=== PATIENT | female | born 1995 | race Caucasian/White ===

== ENCOUNTER 2016-08-02 22:19 | Emergency (ER) | payer OTHER ==
[~2016-08-02] VITALS: Ht 165.1 cm; Wt 63.5 kg
[~2016-08-02 22:19] MED LIST: CIPRO 500MG TA500 MG PO; GUMMI BEAR MUL1 EACH PO; NOMEDS XX; OMNICEF 300 MG300 MG PO; PREDNISONE 20MG20 MG PO; PRILOSEC OTC20 MG PO; PROMETHAZINE5 ML/UDC PO; PYRIDIUM 200MG200 MG PO; TESSALON PERLE100 MG PO; TORADOL10 MG PO; ULTRAM50 MG PO; ZITHROMAX Z-PA250 M2 PO; ZOFRAN4 MG PO
--- NOTE | 2016-08-02 23:09 | Emergency Room Report ---
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 N Clinical Suspician of Infection? N Mental Status: 1 - Regular (Normal Baseline) Sepsis Risk:Possible Sepsis Risk Have you (or family members/close friends) recently traveled outside the [place]? N If Yes, where/when: Have you had exposure to infectious disease within the past month? N TB? Other? Specify: Source patient, RN notes reviewed, RN/MD Exam Limitations no limitations Comment This is a 21-year-old female patient that presented emergency room with midsternal chest pain, in the upper part of her chest, radiates to both shoulders, associated with anxiety, shortness of breath, episodes of hyperventilation, off-and-on for the past 2 weeks. Patient advised that she has had multiple similar episodes in the past and she has seen a drop forger helper at [facility] as well as Dr. Fam. They both advised her that there was no cardiac issue at hand. ALLERGIES Coded Allergies: No Known Allergies (05/18/16) Home Medications Active Scripts Prednisone (Prednisone 20MG) 20 MG PO BID #10 TAB Prov: 05/18/16 Reported Medications Multivitamin (Gummi Bear Multivitamin) 1 EACH PO DAILY #1 History Medical History General CAD? No Angina: No [place]: No Hypertension? Yes Hyperlipidemia? No CHF? No DVT? No PE? No COPD? No Asthma? No Anemia? No GERD? No Gastric ulcers? No GI Bleed? No Hernia? No Thyroid Problems? No Hypothyroidism? No CVA? No Seizures? No Diabetes? No Renal Insuffiency? No End Stage Renal Disease? No UTI? Yes Stones? Yes BPH? No GB Disease: No Nephritic Syndrome? No Asplenia? No Hepatitis? No Sickle Cell Disease? No Arthritis? No Migraines? No Cataracts? No Glaucoma? No MRSA? No HIV? No TB? No Anxiety? No Depression? No Cancer? 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 1 Week Ago Family History Family Hx Diabetes No CAD Yes Hypertension Yes Hyperlipidemia Yes Cancer No TB No Social History Smoking Hx Smoker: Current Every Day Smoker Tobacco: Yes Type Cigarettes Packs/day < 1 Pack Alcohol Alcohol: No Review of Systems All Other Systems Reviewed and Negative Cardiovascular chest pain, palpitations Physical Exam Vital Signs Vital Signs Date Time Temp Pulse Resp B/P Pulse O2 O2 Flow FiO2 Ox Delivery Rate 08/03 0031 98.0 66 18 117/67 98 08/03 0007 67 18 115/65 98 08/02 2333 82 16 122/70 98 08/02 2301 84 16 124/76 98 08/02 2221 98.2 104 20 147/94 100 General Appearance normal appearance, WD/WN, no apparent distress Respiratory Status Yes: trachea midline, chest symmetrical, tender on palpation (with deep inspiration). No: respiratory distress. Lung Sounds bilateral: normal breath sounds, lungs clear. 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 No Comment Upon examination the patient appears medically stable, minimally symptomatic. Advised patient of results obtained, also need for her to follow-up with Dr. Fam within the next 2 days, and call his office in the early hours of the morning to schedule a follow-up appointment. 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 of ischemic chgs, no ectopy, normal QRS, normal ND, normal EKG, no EKG for comparison, non-spec. ST/Twave chgs, ST elevation, ST depression, LBBB, RBBB, ectopy, abnormal Q waves Departure Departure Time of Disposition 2306 Disposition DC Home or Self Care(routine) Clinical Impression Primary Impression: Chest pain Qualifiers: Chest pain type: unspecified Qualified Code: R07.9 - Chest pain, unspecified Condition STABLE Referrals Gus Fam MD: Tomorrow-Call Office Patient Instructions DI for Chest Pain Additional Instructions Please follow-up with Dr. Gus Fam, within the next 2 days, call the office tomorrow to schedule follow-up appointment. Discharge Counseling Counseled pt/family regarding diagnosis, test results, medications/RX, home care, follow up needs Comment Please alternate Motrin with Tylenol for pain control, follow-up with your family doctor within 2 days if no better. ED Critical Care Critical Care No at [phone]
--- NOTE | 2016-08-02 23:09 | Emergency Room Report ---
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 N Clinical Suspician of Infection? N Mental Status: 1 - Regular (Normal Baseline) Sepsis Risk:Possible Sepsis Risk Have you (or family members/close friends) recently traveled outside the [place]? N If Yes, where/when: Have you had exposure to infectious disease within the past month? N TB? Other? Specify: Source patient, RN notes reviewed, RN/MD Exam Limitations no limitations Comment This is a 21-year-old female patient that presented emergency room with midsternal chest pain, in the upper part of her chest, radiates to both shoulders, associated with anxiety, shortness of breath, episodes of hyperventilation, off-and-on for the past 2 weeks. Patient advised that she has had multiple similar episodes in the past and she has seen a aquatics instructor at [facility] as well as Dr. Fam. They both advised her that there was no cardiac issue at hand. ALLERGIES Coded Allergies: No Known Allergies (05/18/16) Home Medications Active Scripts Prednisone (Prednisone 20MG) 20 MG PO BID #10 TAB Prov: 05/18/16 Reported Medications Multivitamin (Gummi Bear Multivitamin) 1 EACH PO DAILY #1 History Medical History General CAD? No Angina: No [place]: No Hypertension? Yes Hyperlipidemia? No CHF? No DVT? No PE? No COPD? No Asthma? No Anemia? No GERD? No Gastric ulcers? No GI Bleed? No Hernia? No Thyroid Problems? No Hypothyroidism? No CVA? No Seizures? No Diabetes? No Renal Insuffiency? No End Stage Renal Disease? No UTI? Yes Stones? Yes BPH? No GB Disease: No Nephritic Syndrome? No Asplenia? No Hepatitis? No Sickle Cell Disease? No Arthritis? No Migraines? No Cataracts? No Glaucoma? No MRSA? No HIV? No TB? No Anxiety? No Depression? No Cancer? 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 Week Ago Family History Family Hx Diabetes No CAD Yes Hypertension Yes Hyperlipidemia Yes Cancer No TB No Social History Smoking Hx Smoker: Current Every Day Smoker Tobacco: Yes Type Cigarettes Packs/day < 1 Pack Alcohol Alcohol: No Review of Systems All Other Systems Reviewed and Negative Cardiovascular chest pain, palpitations Physical Exam Vital Signs Vital Signs Date Time Temp Pulse Resp B/P Pulse O2 O2 Flow FiO2 Ox Delivery Rate 08/03 0031 98.0 66 18 117/67 98 08/03 0007 67 18 115/65 98 08/02 2333 82 16 122/70 98 08/02 2301 84 16 124/76 98 08/02 2221 98.2 104 20 147/94 100 General Appearance normal appearance, WD/WN, no apparent distress Respiratory Status Yes: trachea midline, chest symmetrical, tender on palpation (with deep inspiration). No: respiratory distress. Lung Sounds bilateral: normal breath sounds, lungs clear. Cardiovascular normal exam, regular rate/rhythm, no peripheral edema, no gallop, no JVD, no murmur, no rub, normal peripheral pulses Gastrointestinal normal bowel sounds, normal exam, non tender, soft, no organomegaly Extremities non-tender, normal range of motion, normal inspection Neurologic alert, cra II-XII nml as tested, normal exam, oriented x 3 Mental status normal mood/affect Skin intact, normal color, warm/dry Medical Decision Making LABS/Meds/Orders Pt receiving controlled substance in ED? No Comment Upon examination the patient appears medically stable, minimally symptomatic. Advised patient of results obtained, also need for her to follow-up with Dr. Fam within the next 2 days, and call his office in the early hours of the morning to schedule a follow-up appointment. 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 of ischemic chgs, no ectopy, normal QRS, normal SD, normal EKG, no EKG for comparison, non-spec. ST/Twave chgs, ST elevation, ST depression, LBBB, RBBB, ectopy, abnormal Q waves Departure Departure Time of Disposition 2306 Disposition DC Home or Self Care(routine) Clinical Impression Primary Impression: Chest pain Qualifiers: Chest pain type: unspecified Qualified Code: R07.9 - Chest pain, unspecified Condition STABLE Referrals Gus Fam MD: Tomorrow-Call Office Patient Instructions DI for Chest Pain Additional Instructions Please follow-up with Dr. Gus Fam, within the next 2 days, call the office tomorrow to schedule follow-up appointment. Discharge Counseling Counseled pt/family regarding diagnosis, test results, medications/RX, home care, follow up needs Comment Please alternate Motrin with Tylenol for pain control, follow-up with your family doctor within 2 days if no better. ED Critical Care Critical Care No at [phone]
[2016-08-03 00:31] VITALS: BP 117/67
--- NOTE | 2016-08-05 09:46 | RADIOLOGY REPORT PS360 ---
CHEST-PORTABLE ORDERING PHYSICIAN : Julio Maurice MD PATIENT AGE: 21 years GENDER: Female INDICATION: chest symptomsCHEST PAIN PROCEDURE: CHEST-PORTABLE COMPARISON: 05/18/2016 FINDINGS: Lungs well expanded and clear with no active disease evident. No pneumothorax. No pleural effusion. Heart normal size. Normal pulmonary vascularity. Hilar and mediastinal structures appear satisfactory. Chest wall unremarkable. T-spine intact. IMPRESSION -------- Stable chest No active disease.
== END 2016-08-03 00:52 | disposition home or self-care (01) ==
LOC: ER 22:19
DX: R07.9 Chest pain, unspecified (principal); I10 Essential (primary) hypertension; Z72.0 Tobacco use

== ENCOUNTER → 2016-09-04 | Outpatient (CLI) | payer OTHER ==
--- NOTE | 2016-09-07 09:46 | RADIOLOGY REPORT PS360 ---
US PELVIS-TRANSVAGINAL ONLY HISTORY: PELVIC PAIN ORDERING PHYSICIAN: Schuyler Han MD PATIENT AGE: 21 years COMPARISON: None FINDINGS: Uterus is 7 x 3 x 5 cm with a combined endometrial thickness of 4 mm. No uterine mass evident. The left ovary is 2.7 x 2.2 cm. The right ovary is 2.2 x 1.6 cm. Bilateral ovarian blood flow is present. No ovarian mass or cul-de-sac fluid. IMPRESSION: Negative pelvic ultrasound
== END ==
LOC: RAD 16:11
DX: R10.2 Pelvic and perineal pain (principal)

== ENCOUNTER 2017-03-25 19:47 | Emergency (ER) | payer OTHER ==
[~2017-03-25] VITALS: Ht 165.1 cm; Wt 61.2 kg
[2017-03-25] MEDS ORDERED: WELLBUTRIN SR100 MG PO (20:02)
[2017-03-25] MEDS ORDERED: TESSALON PERLE100 M1 PO (20:35)
[2017-03-25] MEDS ORDERED: MEDROL 4MG. DOSE4 MG PO (20:35)
[2017-03-25] MEDS ORDERED: ZITHROMAX Z PA250 MG PO (20:35)
--- NOTE | 2017-03-25 20:35 | Urgent Treatment Center Report ---
History of Present Issue Date/Time Seen by Provider 03/25/172034 Visit Reason Pt arrived:Walked Presenting Problem:C/O SORE THROAT AND COUGH X3 DAYS Location if Accident: Onset of symptoms date/time:/ or onset unknown for:MEDICAL HX UNKNOWN Have you (or family members/close friends) recently traveled outside the [place]? N If Yes, where/when: Have you had exposure to infectious disease within the past month? TB? Other? Specify: Patient states that she has been having sorethroat and cough that has continued to get worse over the last 3 days State that she feels like her throat is raw and burning and state that she can see drainage in the back of her throat that is making her cough when she lays down ALLERGIES Coded Allergies: No Known Allergies (05/18/16) Home Medications Reported Medications BUPROPION HCL SR (Wellbutrin SR 100MG) 100 MG PO BID History Medical History General CAD? No Angina: No [place]: No Hypertension? Yes Hyperlipidemia? No CHF? No DVT? No PE? No COPD? No Asthma? No Anemia? No GERD? No Gastric ulcers? No GI Bleed? No Hernia? No Thyroid Problems? No Hypothyroidism? No CVA? No Seizures? No Diabetes? No Renal Insuffiency? No UTI? Yes Stones? Yes BPH? No GB Disease: No Nephritic Syndrome? No Asplenia? No Hepatitis? No Sickle Cell Disease? No Arthritis? No Migraines? No Cataracts? No Glaucoma? No MRSA? No HIV? No TB? No Anxiety? No Depression? No Cancer? No More? 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 Respiratory cough Gastrointestinal denies abdominal pain Physical Exam Vital Signs Vital Signs Date Time Temp Pulse Resp B/P Pulse O2 O2 Flow FiO2 Ox Delivery Rate 03/25 2001 97.4 99 20 151/82 100 General Appearance normal appearance, WD/WN, no apparent distress Ear, Nose, Throat Throat red, irritated drainage noted, tenderness frontal sinuses Respiratory Status Yes: trachea midline, chest symmetrical. No: respiratory distress. Lung Sounds bilateral: normal breath sounds, lungs clear. Cardiovascular normal exam, regular rate/rhythm, no peripheral edema Neurologic alert, normal exam, oriented x 3 Medical Decision Making LABS/Meds/Orders Pt receiving controlled substance in ED? No Results/Orders Laboratory Tests 03/25/172010: Influenza Type A Ag NOT DETECTED, Influenza Type B Ag NOT DETECTED 03/25/171957: Group A Strep Screen NOT DETECTED Orders Procedure Date/time Status UTC STREP SCREEN 03/25 2011 Complete UTC FLU A,B 03/25 2011 Complete Departure Departure Time of Disposition 2027 Disposition DC Home or Self Care(routine) Clinical Impression Primary Impression: Upper respiratory infection Qualifiers: URI type: unspecified URI Qualified Code: J06.9 - Acute upper respiratory infection, unspecified Condition STABLE Referrals Jose R VALLEJO,Mario (Family): 3 Days-Call Office If no improvement or worsening of symptoms Patient Instructions Cough, Sinus Headache, Sinusitis Additional Instructions * Monitor Temp. Tylenol and/or Ibuprofen as needed. ER if fever is no less than 101 despite alternating Tylenol and Ibuprofen * Encourage fluids, water, Gatorade, powerade, pedialyte if infant/toddler/or child * Warm salt water gargles for throat irritation *Warm fluids *Sore throat lozenges *Sleep elevated *humidifier or vaporizer *Flonase 2 sprays each nostril daily but may take 2-3 days to notice improvement with it Follow up IMMEDIATELY for new or worsening of symptoms OR no noticeable improvement over the next 48-72 hours. 911 immediately for any life threatening symptoms such as chest pain or difficulty breathing Discharge Counseling Counseled pt/family regarding diagnosis, test results, medications/RX, home care, follow up needs Prescriptions Current Visit Scripts Azithromycin (Zithromycin (Z-MOHAN) 250MG Tab) 250 MG PO DAILY #6 TAB TAKE TWO (2) TABLETS ON DAY 1, THEN ONE (1) TABLET DAY #2 THRU #5 Methylprednisolone (Medrol Dose Mohan) 4 MG PO UD #1 MOHAN TAKE DIRECTED ON PACKAGING Benzonatate (Tessalon Perle) 100 MG PO TID #15 SGL at 2040
[2017-03-25 20:36] VITALS: BP 151/82
--- OUTSIDE RECORDS SUMMARY | 2017-03-27 18:01 | External Medical Summary Rpt | CCD ---
Author Author [employer] Organization [employer] Address Unknown Phone Unavailable Purpose Continuity of Care Document - through 2016
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
--- OUTSIDE RECORDS SUMMARY | 2017-03-27 18:01 | External Medical Summary Rpt | CCD ---
Author Author , REYNALDO Organization REYNALDO Address Unknown Phone [email or web address] Care Team Providers Care Climate Change Risk Assessor Name Role Phone Kaylee Patel MD, Unavailable Unavailable Kaylee Fuentes MD, Unavailable Unavailable Kam BELTRAN MD, Unavailable Unavailable PAVEL BELTRAN MD Purpose Continuity of Care Document - 01-28-2013 through 2016 Problems Code Diagnosis DOS Provider Status 305.1 305.1 05-30-2013 [place] TOBACCO USE [facility] 626.8 626.8 05-30-2013 [place] MENSTRUAL [facility] NEC 466.0 466.0 ACUTE 05-18-2013 [place] BRONCHITIS [facility] 511.0 511.0 05-18-2013 [place] [facility] OR TB 780.2 780.2 01-28-2013 [place] SYNCOPE AND [facility] N20.0 CALCULUS OF KIDNEY O23.40 UNSP INFECTION [...] UA Dipstick Pnl Ur (12-15-2016 13:54) Color 6950051 Yellow, complet Ur 017 09 Straw ed 13:54 Yellow color SCT Clarity 6537512 Clear complet Ur 017 5 ed 13:54 Cloudy SCT pH Ur 7.0 5.0-8.0 complet Strip.a 017 ed uto 13:54 Sp Gr 1.018 1.001-1 complet Ur 017 .030 ed Strip 13:54 Glucose 5386285 Negativ complet Ur 017 09 e ed Strip-m 13:54 Negativ Cnc e SCT Ketones 2558562 Negativ complet Ur Ql 017 09 e ed Strip 13:54 Negativ e SCT Bilirub 2796688 Negativ complet Ur Ql 017 09 e ed Strip 13:54 Negativ e SCT Hgb Ur 4348940 Negativ complet Ql 017 01 e ed Strip.a 13:54 Large uto SCT Prot Ur 2278145 Negativ complet Ql 017 09 e ed Strip 13:54 Negativ e SCT Leukocy 8283889 Negativ complet te 017 04 e ed esteras 13:54 Small e Ur Ql SCT Strip.a uto Nitrite 7263681 Negativ complet Ur Ql 017 09 e [...] Auto 017 /HPF Seen ed 13:54 Bacteri 9430510 None complet a Ur Ql 017 00 Not Seen, ed Auto 13:54 detecte Trace d SCT /HPF Squamou 3-6 None complet s 017 /HPF Seen, ed #/area 13:54 0-2 UrnS HPF Hyaline 0-6 0-6 complet Casts 017 /LPF ed Ur Ql 13:54 Auto Ref lab Automat complet test 017 ed ed method 13:54 [facility] opy Troponin T SerPl Ql (12-15-2016 13:54) Troponi 0.00 0.00-0. complet n I 017 ng/mL 07 ed SerPl-m 13:54 Cnc Comment: Serial Number: [id number] Medical Assistant Dermatology: [id number] D Dimer [facility] (12-15-2016 13:54) Comment: Negative predictive value for exclusion of venous thromboembolism: < or = 0.5 mg/L (FEU) D dimer 0.22 0.00-0. complet FEU 017 mg/L 50 ed PPP-mCn 13:54 (FEU) c Bacteria Ur Cult (12-15-2016 13:54) Bacteri 9602863 complet a XXX 017 9 ed Aerobe [...] Patel MD (ER) 3 05:25 3 05:25 [facility] Emergency PIEDAD Fuentes MD (ER) 3 20:53 3 23:00 [facility] Emergency PIEDAD BELTRAN (ER) 3 18:32 3 19:53 [facility] PAVEL
--- OUTSIDE RECORDS SUMMARY | 2017-03-27 18:02 | External Medical Summary Rpt | CCD ---
Demographics Preferred Language Maltese Marital Status Unknown Rastafari Affiliation Unknown Race Unknown Ethnic Group Unknown Author Author , REYNALDO JACOBS Address Unknown Phone Immunization No patient found.
--- OUTSIDE RECORDS SUMMARY | 2017-03-27 18:02 | External Medical Summary Rpt | CCD ---
Demographics Preferred Language South Sudanese Marital Status Unknown Quaker Affiliation Unknown Race Unknown Ethnic Group Unknown Author Author , REYNALDO JACOBS Address Unknown Phone Immunization No patient found.
== END 2017-03-25 20:36 | disposition home or self-care (01) ==
LOC: UTC 19:47
DX: J06.9 Acute upper respiratory infection, unspecified (principal); F17.210 Nicotine dependence, cigarettes, uncomplicated; I10 Essential (primary) hypertension

== ENCOUNTER 2017-04-20 10:25 | Emergency (ER) | payer OTHER ==
[~2017-04-20] VITALS: Ht 165.1 cm; Wt 59.0 kg
[~2017-04-20 10:25] MED LIST changes: +MEDROL 4MG. DOSE4 MG PO; +TESSALON PERLE100 M1 PO; +WELLBUTRIN SR100 MG PO; +ZITHROMAX Z PA250 MG PO
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
--- OUTSIDE RECORDS SUMMARY | 2017-04-20 11:07 | External Medical Summary Rpt | CCD ---
Author Author , REYNALDO JACOBS Address Unknown Phone [email or web address] Care Team Providers Care Master Carpenter Name Role Phone Kaylee Patel MD, Unavailable Unavailable Kaylee Fuentes MD, Unavailable Unavailable Kam BELTRAN MD, Unavailable Unavailable PAVEL BELTRAN MD Purpose Continuity of Care Document - 01-28-2013 through 2016 Problems Code Diagnosis DOS Provider Status 305.1 305.1 05-30-2013 [place] TOBACCO USE [facility] 626.8 626.8 05-30-2013 [place] MENSTRUAL [facility] NEC 466.0 466.0 ACUTE 05-18-2013 [place] BRONCHITIS [facility] 511.0 511.0 05-18-2013 [place] PLEURISY [facility] W/O [facility] OR TB 780.2 780.2 01-28-2013 [place] SYNCOPE AND [facility] Allergies, Adverse Reactions, Alerts Type Allergy to [...] Order Detail nces retati t Range on Rapid influenza A and B antigen detectio (03-25-2017 20:11) INFLUEN NOT NOT complet ZA B 017 DETECTE DETECTD ed ANTIGEN 20:11 D Comment: LOT # [id number] EXP DATE 03/02/30 Influen NOT NOT complet za A ag 017 DETECTE DETECTD ed QL 20:11 D NOT DETECTE D L Screening group A Streptococcus antigen (03-25-2017 19:58) Screeni NOT NOTDETE complet ng 017 DETECTE CTED ed group A 19:58 D NOT DETECTE Strepto D L coccus antigen Comment: LOT # [id number] EXP DATE N/A LPL SerPl-cCnc (12-15-2016 14:24) Lipase 27 U/L 6-51 complet SerPl-c 017 ed Cnc 14:24 Comp Metab 1998 Pnl SerPl (12-15-2016 14:24) Comment: [employer] Guidelines Comment: Comment: Stage Description GFR Comment: 1 Normal or High 90+ Comment: 2 Mild decrease 60-89 Comment: 3 Moderate decrease 30-59 Comment: 4 Severe decrease 15-29 Comment: 5 Kidney failure <15 Anion 3.0 3.0-11. complet Gap3 017 mmol/L 0 ed SerPl-s 14:24 Cnc BUN/Cre 11.7 7.0-25. complet at 017 0 ed SerPl 14:24 Albumin 1.4 1.5-2.5 complet /Glob 017 g/dL ed SerPl 14:24 Globuli 3.0 complet n Ur 017 gm/dL ed Elph-mC 14:24 nc GFR/BSA 126 >60 complet .pred 017 mL/min/ ed SerPl 14:24 1.73 MDRD-Ar VRat Bilirub 0.4 0.3-1.2 complet 017 mg/dL ed SerPl-m 14:24 Cnc ALP 80 U/L 25-100 complet SerPl-c 017 ed Cnc 14:24 AST 22 U/L 0-33 complet SerPl-c 017 ed Cnc 14:24 ALT 12-15- 17 U/L 7-40 complet SerPl w 017 ed 14:24 P-5'-P- cCnc Albumin 4.10 3.20-4. complet 017 g/dL 80 ed SerPl-m 14:24 Cnc Prot 7.1 5.7-8.2 complet SerPl-m 017 g/dL ed Cnc 14:24 Calcium 10.2 8.7-10. complet 017 mg/dL 4 ed XXX-sCn 14:24 c CO2 29.0 20.0-31 complet SerPl-s 017 mmol/L .0 ed Cnc 14:24 Chlorid 104 99-109 complet e 017 mmol/L ed SerPl-s 14:24 Cnc Potassi 07-04-2 3.7 3.5-5.5 complet um 017 mmol/L ed Bld-sCn 14:24 c Sodium -04-2 136 132-146 complet Bld-sCn 017 mmol/L ed c 14:24 Creat -04-2 0.60 0.60-1. complet Bld-mCn 017 mg/dL 30 ed c 14:24 BUN -04-2 7 mg/dL 9-23 complet Bld-mCn 017 ed c 14:24 Glucose 04-2 94 70-100 complet 017 mg/dL ed Bld-mCn 14:24 c BNP SerPl-mCnc (12-15-2016 13:55) BNP -04-2 18.0 0.0-100 complet SerPl-m 017 pg/mL .0 ed Cnc 13:55 CBC W Diff pnl,unspecified Bld (12-15-2016 13:55) Imm 07-04-2 0.01 0.00-0. complet Granulo 017 10*3/mm 03 ed cytes # 13:55 3 Bld Basophi 07-04-2 0.04 0.00-0. complet ls # 017 10*3/mm 20 ed Bld 13:55 3 Auto Eosinop 07-04-2 0.22 0.00-0. complet hil # 017 10*3/mm 30 ed Bld 13:55 3 Auto Monocyt 07-04-2 0.49 0.00-1. complet es # 017 10*3/mm 00 ed Bld 13:55 3 Auto Lymphoc 07-04-2 4.03 0.60-4. complet ytes # 017 10*3/mm 80 ed Bld 13:55 3 Auto Neutrop 07-04-2 4.43 1.50-8. complet hils # 017 10*3/mm 30 ed Bld 13:55 3 Auto Imm 07-04-2 0.1 % 0.0-0.6 complet Granulo 017 ed cytes/l 13:55 euk NFr Bld Basophi 07-04-2 0.4 % 0.0-1.0 complet ls/leuk 017 ed NFr 13:55 Bld Auto Eosinop 07-04-2 2.4 % 0.0-3.0 complet hil/fausto 017 ed k NFr 13:55 Bld Auto Monocyt 04-2 5.3 % 0.0-12. complet es/leuk 017 0 ed NFr 13:55 Bld Auto Lymphoc 04-2 43.7 % 24.0-44 complet ytes/le 017 .0 ed uk NFr 13:55 Bld Auto Neutrop 04-2 48.1 % 41.0-71 complet hils/le 017 .0 ed uk NFr 13:55 Bld Auto Platele 12-15-2 353 150-450 complet t # Bld 017 10*3/mm ed Auto 13:55 3 PMV Bld 04-2 10.3 fL 6.0-12. complet Auto 017 0 ed 13:55 RDW RBC -04-2 44.8 fl 37.0-54 complet Auto 017 .0 ed 13:55 RDW RBC 07-04-2 13.4 % 11.3-14 complet 017 .5 ed Auto-Rt 13:55 o MCHC -04-2 32.6 32.0-36 complet RBC 017 g/dL .0 ed Auto-mC 13:55 nc MCH RBC 04-2 29.7 pg 27.0-31 complet Qn 017 .0 ed Auto 13:55 MCV RBC -04-2 91.3 fL 80.0-99 complet Auto 017 .0 ed 13:55 Hct VFr 04-2 43.0 % 34.5-44 complet Bld 017 .0 ed Auto 13:55 Hgb -04-2 14.0 11.5-15 complet Bld-mCn 017 g/dL .5 ed c 13:55 RBC # 07-04-2 4.71 3.89-5. complet Bld 017 10*6/mm 14 ed Auto 13:55 3 WBC -04-2 9.22 4.50-13 complet nRBC 017 10*3/mm .50 ed cor # 13:55 3 Bld Bacteria Ur Cult (12-15-2016 13:54) Bacteri 04-2 [id number] complet a XXX 017 9 ed Aerobe 13:54 Normal Cult meryl SCT Comment: >100,000 CFU/mL Normal Urogenital Meryl D Dimer PPP-aCnc (12-15-2016 13:54) Comment: Negative predictive value for exclusion of venous thromboembolism: < or = 0.5 mg/L (FEU) D dimer 0.22 0.00-0. complet FEU 017 mg/L 50 ed PPP-mCn 13:54 (FEU) c Troponin T SerPl Ql (12-15-2016 13:54) Troponi 0.00 0.00-0. complet n I 017 ng/mL 07 ed SerPl-m 13:54 Cnc Comment: Serial Number: [id number] Pocket Creaser: [id number] UA Microscopic Pnl # Ur Auto (12-15-2016 13:54) Ref lab Automat complet test 017 ed ed method 13:54 Microsc opy Hyaline 0-6 0-6 complet Casts 017 /LPF ed Ur Ql 13:54 Auto Squamou 3-6 None complet s 017 /HPF Seen, ed #/area 13:54 0-2 UrnS HPF Bacteri [id number] None complet a Ur Ql 017 00 Not Seen, ed Auto 13:54 detecte Trace d SCT /HPF WBC Ur 3-5 None complet Ql Auto 017 /HPF Seen ed 13:54 RBC # 12-15- Too None complet Ur 017 Numerou Seen, ed 13:54 s to 0-2 Count /HPF UA Dipstick Pnl Ur (12-15-2016 13:54) Urobili 0.2 0.2 - complet nogen 017 E.U./dL 1.0 ed Ur Ql 13:54 E.U./dL Strip Nitrite [id number] Negativ complet Ur Ql 017 09 e ed Strip 13:54 Negativ e SCT Leukocy 2653959 Negativ complet te 017 04 e ed esteras 13:54 Small e Ur Ql SCT Strip.a uto Prot Ur [id number] Negativ complet Ql 017 09 e ed Strip 13:54 Negativ e SCT Hgb Ur 0635180 Negativ complet Ql 017 01 e ed Strip.a 13:54 Large uto SCT Bilirub [id number] Negativ complet Ur Ql 017 09 e ed Strip 13:54 Negativ e SCT Ketones 2572628 Negativ complet Ur Ql 017 09 e ed Strip 13:54 Negativ e SCT Glucose 8029926 Negativ complet Ur 017 09 e ed Strip-m 13:54 Negativ Cnc e SCT Sp Gr 1.018 1.001-1 complet Ur 017 .030 ed Strip 13:54 pH Ur 7.0 5.0-8.0 complet Strip.a 017 ed uto 13:54 Clarity [id number] Clear complet Ur 017 5 ed 13:54 Cloudy SCT Color [id number] Yellow, complet Ur 017 09 Straw ed 13:54 Yellow color SCT B-HCG Ur Ql (05-30-2013 04:45) B-HCG NEGATIV [...] mg/dL 1 ed SerPl-m 21:00 Cnc Prot 12-05-2 7.7 6.4-8.2 complet SerPl-m 013 gm/dL ed Cnc 21:00 Albumin 05-18-2 3.9 3.4-5.0 complet 013 gm/dL ed SerPl-m 21:00 Cnc Globuli 05-18-2 3.8 1.3-3.2 complet n 013 gm/dL ed Ser-mCn 21:00 c Albumin 1.0 UNK 1.1-1.8 complet /Glob 013 ed SerPl-m 21:00 Rto Bilirub 05-18- 0.6 0.2-1.0 complet 013 mg/dL ed SerPl-m 21:00 Cnc AST 05-18- 19 U/L 15-37 complet SerPl-c 013 ed Cnc 21:00 ALT 05-18- 37 U/L 30-65 complet SerPl-c 013 ed Cnc 21:00 ALP 121 U/L 50-136 complet SerPl-c 013 ed Cnc 21:00 CBC with AUTO DIFF (05-18-2013 21:00) WBC # 05-18-2 12.7 4.5-13. complet Bld 013 K/MM3 0 ed Auto 21:00 RBC # 05-18-2 4.59 4.2-5.4 complet Bld 013 M/mm3 ed [...] 013 4 ed T 21:00 VOLUME Granulo 12-05-2 71.8 % 37.0-80 complet cytes 013 .0 ed Fr Bld 21:00 Auto LYMPH % 12-05-2 21.2 % 10-50.0 complet 013 ed 21:00 Monocyt 12-05-2 4.1 % 1.7-9.3 complet es Fr 013 ed Bld 21:00 Auto Eosinop 12-05-2 2.4 % 0.1-12. complet hil Fr 013 0 ed Bld 21:00 Auto Basophi 12-05-2 0.5 % 0.1-2.0 complet ls Fr 013 ed Bld 21:00 Auto Granulo 12-05-2 9.1 1.8-7.8 complet cytes # 013 K/mm3 ed Bld 21:00 Auto Lymphoc 12-05-2 2.7 0.7-4.5 complet ytes Fr 013 K/mm3 [...] complet BLOOD 013 E ed 18:20 URINE 17-2 6.0 UNK 5.0-8.5 complet PH 013 ed 18:20 URINE -17-2 1+ NEG complet PROTEIN 013 mg/dL ed - 18:20 DIPSTIC K URINE 0.2 NEG complet UROBILI 013 E.U./dL ed NOGEN - 18:20 DIPSTIC K URINE NEGATIV NEG complet NITRATE 013 E ed - 18:20 DIPSTIC K URINE 1+ NEG complet LEUK 013 ed ESTERAS 18:20 E URINE 5-10 O complet WBC 013 wbc/hpf ed 18:20 URINE TNTC 0-5 complet SQUAMOU 013 #/hpf ed S CELLS 18:20 URINE 2+ OCC complet MUCUS 013 ed 18:20 [...] 013 mmoL/L .0 ed Cnc 18:14 Calcium 9.1 8.5-10. complet 013 mg/dL 1 ed SerPl-m 18:14 Cnc Prot 01-28- 8.4 6.4-8.2 complet SerPl-m 013 gm/dL ed Cnc 18:14 Albumin 4.4 3.4-5.0 complet 013 gm/dL ed SerPl-m 18:14 Cnc Globuli 4.0 1.3-3.2 complet n 013 gm/dL ed Ser-mCn 18:14 c Albumin 17-2 1.1 UNK 1.1-1.8 complet /Glob 013 ed SerPl-m 18:14 Rto Bilirub 17-2 0.7 0.2-1.0 complet 013 mg/dL ed SerPl-m 18:14 Cnc AST 01-28-2 12 U/L 15-37 complet SerPl-c 013 ed Cnc 18:14 ALT 17-2 31 U/L 30-65 complet SerPl-c 013 ed Cnc 18:14 ALP -17-2 134 U/L 50-136 complet SerPl-c 013 ed Cnc 18:14 CBC with AUTO DIFF (01-28-2013 18:14) WBC # 08-17-2 12.3 4.5-13. complet Bld 013 K/MM3 0 ed Auto 18:14 RBC # 17-2 4.94 4.2-5.4 complet Bld 013 M/mm3 ed Auto 18:14 Hgb 17-2 14.6 12.2-16 complet Bld-mCn 013 g/dL .2 ed c 18:14 Hct Fr 01-28-2 44.4 % 37.0-47 complet Bld 013 .0 ed 18:14 MCV RBC 17-2 89.8 fl 82.2-97 complet 013 .8 ed 18:14 MCH RBC -17-2 29.5 pg 27-31.2 complet Qn 013 ed Auto 18:14 MEAN 17-2 32.9 31.8-35 complet CORPUSC 013 g/dl .4 ed ULAR 18:14 HGB CONC RDW RBC 17-2 13.4 % 11.5-17 complet Auto 013 .5 ed 18:14 Platele -17-2 410 142-424 complet t Bld 013 K/mm3 ed Ql 18:14 Manual MEAN 17-2 7.0 fl 7.4-10. complet PLATELE 013 4 ed T 18:14 VOLUME Granulo 17-2 67.5 % 37.0-80 complet cytes 013 .0 ed Fr Bld 18:14 Auto LYMPH % 08-17-2 23.7 % 10-50.0 complet 013 ed 18:14 Monocyt -17-2 5.0 % 1.7-9.3 complet es Fr 013 ed Bld 18:14 Auto Eosinop 08-17-2 3.1 % 0.1-12. complet hil Fr 013 0 ed Bld 18:14 Auto Basophi 08-17-2 0.8 % 0.1-2.0 complet ls Fr 013 ed Bld 18:14 Auto Granulo -17-2 8.3 1.8-7.8 complet cytes # 013 K/mm3 ed Bld 18:14 Auto Lymphoc -17-2 2.9 0.7-4.5 complet ytes Fr 013 K/mm3 ed Bld 18:14 Auto Monocyt 08-17-2 0.6 0.1-1.0 complet es # 013 K/mm3 ed Bld 18:14 Auto Eosinop -17-2 0.4 0.0-0.4 complet hil # 013 K/mm3 ed Bld 18:14 Auto Basophi 08-17-2 0.1 0-0.2 complet ls # 013 K/MM3 ed Bld 18:14 Auto B-HCG SerPl Ql (01-28-2013 18:14) B-HCG -17-2 NEGATIV NEG complet SerPl 013 E ed Ql 18:14 Encounters Encounter Start End Date Code Location Performer Type Date Emergency PIEDAD Patel MD (ER) 3 05:25 3 05:25 [facility] Emergency PIEDAD Fuentes MD (ER) 3 20:53 3 23:00 [facility] Emergency PIEDAD BELTRAN (ER) 3 18:32 3 19:53 [facility] PAVEL
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
--- OUTSIDE RECORDS SUMMARY | 2017-04-20 11:08 | External Medical Summary Rpt | CCD ---
Demographics Preferred Language Slovak Marital Status Unknown Christianity Affiliation Unknown Race Unknown Ethnic Group Unknown Author Author , REYNALDO JACOBS Address Unknown Phone Immunization No patient found.
--- OUTSIDE RECORDS SUMMARY | 2017-04-20 11:08 | External Medical Summary Rpt | CCD ---
Demographics Preferred Language Togolese Marital Status Unknown Faith Affiliation Unknown Race Unknown Ethnic Group Unknown Author Author , REYNALDO JACOBS Address Unknown Phone Immunization No patient found.
[2017-04-20 11:19] VITALS: BP 135/71
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
== END 2017-04-20 11:24 | disposition home or self-care (01) ==
LOC: ER 10:25
DX: S20.211A Contusion of right front wall of thorax, initial encounter (principal); S39.012A Strain of muscle, fascia and tendon of lower back, initial encounter; V43.52XA Car driver injured in collision with other type car in traffic accident, initial encounter; Y92.414 Local residential or business street as the place of occurrence of the external cause; Y99.0 Civilian activity done for income or pay; I10 Essential (primary) hypertension; F17.210 Nicotine dependence, cigarettes, uncomplicated